=== PATIENT | female | born 2000 | race Caucasian/White ===

== ENCOUNTER 2022-08-11 09:21 | Inpatient (IN) ==
[2022-08-11] MEDS ORDERED: OXYTOCIN 30 UNITS/500 ML BAG IV PRN ×2 (09:32→09:37)
[2022-08-11] MEDS ORDERED: LACTATED RINGER'S 1,000 ML IV PRN (09:32)
[2022-08-11] MEDS ORDERED: LIDOCAINE 1% LOCAL 20 ML VIAL INFIL PRN (09:32)
[2022-08-11] MEDS ORDERED: bisacodyL 10 MG SUPP PR PRN (09:37)
[2022-08-11] MEDS ORDERED: oxyCODONE/ACETAMINOPHEN 5mg/325mg TAB PO PRN (09:37)
[2022-08-11] MEDS ORDERED: ACETAMINOPHEN 325 MG TAB PO PRN (09:37)
[2022-08-11] MEDS ORDERED: OXYTOCIN 10 UNITS/ML 10ML VIAL IM ONE (09:37)
[2022-08-11] MEDS ORDERED: HYDROCORTISONE ACETATE 25 MG SUPP PR PRN (09:37)
[2022-08-11] MEDS ORDERED: BENZOCAINE 20% AER SPR 82.5 GM CAN EXT PRN (09:37)
[2022-08-11] MEDS ORDERED: DIPHTHERIA/TETANUS/PERTUSSIS 0.5 ML SYR/VIAL IM ONE (09:37)
[2022-08-11 10:02] LABS: Hematocrit (blood only) 35.3 % (34.1-44.9); Hemoglobin 12.1 g/dl (12.0-16.0); Mean Corpuscular Hemoglobin 30.3 pg (25.0-34.0); Mean Corpuscular Hgb Conc 34.3 g/dL (32.0-36.0); Mean Corpuscular Volume 88.5 fL (80.0-100.0); Mean Platelet Volume 11.1 fL (9.4-12.3); Platelet Count 192 K/uL (130-400); RDW Coefficient of Variation 12.5 % (11.5-14.5); RDW Standard Deviation 40.5 fL (36.4-46.3); Red Blood Count 3.99 M/uL (3.93-5.22); White Blood Count 18.01 K/ul (4.8-10.8)
--- NOTE | 2022-08-11 10:14 | Delivery Summary ---
Vaginal Delivery Summary Date of Service August 11, 2022 Vaginal Delivery Summary [facility] Patient is a 22-year-old 3 para 1-0-1-1 female who presents at 39-2/7 weeks in active labor following spontaneous rupture of membranes at approximately 8 AM this morning. She arrived in labor and delivery at 9 AM fully dilated and with the urge to push. Dr. Benitez was on the labor & delivery unit at the time of the patient's arrival. I arrived shortly after the was delivered. According to Dr. Benitez, she pushed effectively through 1 or 2 contractions to deliver a viable male infant who was vigorous upon delivery. After the head was delivered there was a loose nuchal cord which was reduced prior to delivering the rest of the . The infant was placed on the mother's abdomen for further attention and drying. After approximately 1 minute the cord was clamped and cut. I delivered The placenta which was expressed intact with a three-vessel cord. Cord blood was obtained after the placenta was delivered. There were no perineal lacerations or abrasions present. bleeding was controlled with IM Pitocin and fundal massage. EBL 200cc. Mother and were doing well after delivery. [facility] Vaginal Delivery Charge Delivery Type Details: [facility]
[2022-08-11] MEDS ORDERED: METHYLERGONOVINE MALEATE 0.2 MG/ML AMP IM STA (11:11)
[2022-08-11] MEDS: IBUPROFEN 600 MG TAB PO PRN ×2 (15:52→20:53)
[2022-08-11] MEDS: DOCUSATE SODIUM 100 MG CAP PO SCH (20:53)
[2022-08-12] MEDS: IBUPROFEN 600 MG TAB PO PRN ×2 (04:04→11:02)
--- NOTE | 2022-08-12 07:34 | Obstetrical Progress Note ---
Date of Service August 12, 2022 Assessment & Plan (1) Encounter for care and examination after delivery: satisfactory exam wishes to be discharged follow up in 6 weeks Subjective Ambulation: ambulating normally Voiding: no voiding problems Passing Gas:: Yes Diet Tolerance:: regular diet Lochia:: Small Feeding Type:: breast feeding Review of Systems All systems reviewed & are unremarkable except as noted in HPI & below Physical Exam Constitutional WD/WN, vitals as above Psychiatric A+Ox3, euthymic affect Genitourinary OB Exam Abdomen: + fundal height Fundus: + firm and + relation to umbilicus (1 below) Results & Data ([facility]) Vital Signs (Past 12 Hours) Vital Signs Temp Pulse Resp BP Pulse Ox O2 Del Method 08/12/22 02:45 98.4 F 83 18 117/83 98 Room Air 08/11/22 23:30 98.6 F 97 H 18 135/90 97 Room Air 08/11/22 20:00 98.6 F 115 H 16 136/82 98 Room Air
[2022-08-12 07:46] LABS: Hemoglobin 10.1 g/dl (12.0-16.0); Mean Corpuscular Hgb Conc 33.7 g/dL (32.0-36.0); Mean Platelet Volume 11.1 fL (9.4-12.3); Platelet Count 190 K/uL (130-400); RDW Coefficient of Variation 12.8 % (11.5-14.5); RDW Standard Deviation 40.8 fL (36.4-46.3); Red Blood Count 3.37 M/uL (3.93-5.22); White Blood Count 13.41 K/ul (4.8-10.8)
[2022-08-12] MEDS ORDERED: PRENATAL VITAMIN 1 TAB PO SCH (08:00)
[2022-08-12] MEDS: DOCUSATE SODIUM 100 MG CAP PO SCH (09:01)
[2022-08-12] MEDS ORDERED: bisacodyL 5 MG TABEC PO SCH (20:00)
== END 2022-08-12 13:25 | disposition home or self-care (01) | DRG 807 ==
LOC: 4S1 09:21 → 4E2 13:08
DX: Z37.0 Single live birth; Z3A.39 39 weeks gestation of pregnancy; O69.81X0 Labor and delivery complicated by cord around neck, without compression, not applicable or unspecified; O42.02 Full-term premature rupture of membranes, onset of labor within 24 hours of rupture

== ENCOUNTER 2024-11-18 21:04 | Inpatient (IN) ==
[2024-11-18] MEDS ORDERED: OXYTOCIN 30 UNITS/NSS 30 UNITS/500 ML BAG IV PRN (22:20)
[2024-11-18] MEDS ORDERED: LIDOCAINE 1% LOCAL 20 ML VIAL INFIL PRN (22:20)
--- NOTE | 2024-11-18 22:25 | History & Physical Report ---
Date of Service November 18, 2024 Assessment & Plan (1) PROM (premature rupture of membranes): (2) Term : Plan admit, labs, iv recommended. will rec pitocin for induction given prom, however pt prefers to ambulate first to see if can develop ctx pattern. fhts categ 1. History of Present Illness Chief Complaint: term prom Primary Care Provider: Joyce Easton MD, FACOG 24yo at term with srom clear fluid at 8pm on 11/18/24. On arrival to gross srom per nurse and now with some ctx. Cx 3-4cm. PNC uncomplicated except rh neg PNL rh neg, ri, gbs neg OBH: x 2 GYNH: nl paps no stds Allergies Allergy/AdvReac Type Severity Reaction Status Date / Time No Known Allergies Allergy Verified 11/18/24 11:46 Home Medications Medication Instructions Recorded Confirmed Type prenat.vits,rachel,kno-[id number]-otilr 1 tab PO DAILY 08/11/22 11/18/24 History sertraline PO 04/15/24 11/18/24 History Patient History Medical History Encounter for care and examination after delivery Varicella vaccination Surgical History H/O unilateral salpingectomy S/P wisdom tooth extraction Family History Grandfather (Maternal) Colorectal cancer Mother Thyroid disease Brother Hypertension Sister Thyroid disease Denies family history of Ovarian cancer Breast cancer Social History Smoking Status: Never smoker Second Hand Exposure: No; Do You Dip or Chew Tobacco: No; Tobacco Cessation Education Requested by Patient: No Hx Alcohol Use: No Hx Substance Use: No Preferred Language: Divehi Communication Ability: Effective Relay Technician Required: No Beliefs That Will Affect Care: None marital status: marital status details: Jasen Mayer (27) [phone] Current Living Situation: Spouse and Family Current Living Situation Comment: and kids current occupational status: unemployed current occupation: homemaker Other Information That Helps Us Care for You: No Feels Safe at Home: Yes Safety Concerns: Feels Safe At This Time Assistive Devices: Glasses Review of Systems as per Subjective / HPI Physical Exam Constitutional: WD/WN, vitals as above Neurologic: grossly normal Genitourinary: Manual OB Exam: + cervical dilation (3-4cm cephalic per nurse) OB Exam Monitor Tracing: + external FHT monitor used, + external uterine monitor used (q2-3 currently pt up walking), + category I and + normal FHT variability Results & Data Vital Signs (Past 12 Hours) Vital Signs Pulse BP 11/18/24 21:39 89 128/78 Coding Level of Care Code None Diagnoses PROM (premature rupture of membranes) O42.90 Term Z34.90
[2024-11-18 23:25] LABS: Hemoglobin 10.4 g/dl (12.0-16.0); Mean Corpuscular Hemoglobin 29.4 pg (25.0-34.0); Mean Corpuscular Hgb Conc 33.5 g/dL (32.0-36.0); Mean Corpuscular Volume 87.6 fL (80.0-100.0); Mean Platelet Volume 10.8 fL (9.4-12.4); Platelet Count 193 K/uL (130-400); RDW Coefficient of Variation 12.5 % (11.5-14.5); Red Blood Count 3.54 M/uL (4.20-5.40); White Blood Count 11.27 K/ul (4.8-10.8)
[2024-11-19] MEDS: LACTATED RINGER'S 1,000 ML IV PRN (02:30)
[2024-11-19] MEDS: OXYTOCIN 30 UNITS/NSS 30 UNITS/500 ML BAG IV PRN (02:37)
[2024-11-19] MEDS: CALCIUM CARBONATE 500 MG CHEWABLE TAB PO PRN (03:22)
--- NOTE | 2024-11-19 06:41 | Delivery Summary ---
Vaginal Delivery Summary Date of Service November 19, 2024 Vaginal Delivery Summary The patient dilated to complete and pushed to deliver a viable female Apgars 8 and 8 via over intact perineum. Mother with urge to continue to push so shoulders and body rapidly delivered with ease. was vigorous and crying at . Mouth and nose bulb suctioned. Cord clamped at 52 seconds of life and to maternal abdomen where the cord was then doubly clamped and cut. Placenta delivered spontaneously and intact, three-vessel cord. Hemostasis achieved with dilute pitocin and uterine massage. Cervix and sulci intact. QBL 43 cc. Mother and baby stable in recovery. [facility] Vaginal Delivery Charge Delivery Type Details:
[2024-11-19] MEDS ORDERED: HYDROCORTISONE ACETATE 25 MG SUPP PR PRN (07:05)
[2024-11-19] MEDS ORDERED: oxyCODONE/ACETAMINOPHEN 5mg/325mg TAB PO PRN (07:05)
[2024-11-19] MEDS ORDERED: OXYTOCIN 30 UNITS/NSS 30 UNITS/500 ML BAG IV PRN (07:05)
[2024-11-19] MEDS: SERTRALINE HCL 100 MG TABLET PO SCH (09:02)
[2024-11-19] MEDS: BENZOCAINE 20% SPRY 85 APPLN/85 GM CAN EXT PRN (09:02)
[2024-11-19] MEDS: PRENATAL VITAMIN 1 TAB PO SCH (09:05)
[2024-11-19] MEDS: DOCUSATE SODIUM 100 MG CAP PO SCH (09:05)
[2024-11-19] MEDS: DIPHTHER/TETAN/PERTUS Vaccine (Tdap, Adol/Adult) 0.5mL IM ONE (09:06)
[2024-11-19] MEDS: IBUPROFEN 600 MG TAB PO PRN (09:50)
[2024-11-19] MEDS: ACETAMINOPHEN 325 MG TAB PO PRN (12:20)
[2024-11-20 02:12] VITALS: PULSE 81; RESP 18; O2SAT 99
--- NOTE | 2024-11-20 06:51 | Obstetrical Progress Note ---
Date of Service <Reji Godinez MD - Last Filed: 11/20/24 07:38> November 20, 2024 Assessment & Plan <Reji Godinez MD - Last Filed: 11/20/24 07:38> (1) care and examination: PPD#1 s/p at 39+ wga: Stable. Rh-, gbs neg, ri, AFVSS Continue routine care, ambulation, diet as tolerated Plan for DC today (2) Need for rhogam due to Rh negative mother: <Neftali Barnett MD - Last Filed: 11/23/24 09:34> (1) care and examination: (2) Need for rhogam due to Rh negative mother: Subjective <Reji Godinez MD - Last Filed: 11/20/24 07:38> Patient is a 24yo who is PPD#1 following at 39+ weeks. Mild abd pain/cramping, well managed on analgesics Voiding w/o issue Tolerating meals Ambulating normally +passing gas, +BM Lochia minimal, diminishing Planning to breastfeed. Constitutional: no fever, no chills or no sweats Respiratory: no dyspnea Cardiovascular: no chest pain, no palpitations or no calf pain Breast: no breast pain Gastrointestinal: no nausea or no vomiting Genitourinary (female): no dysuria Neurologic: no headache(s) no changes in vision, no headaches Physical Exam <Reji Godinez MD - Last Filed: 11/20/24 07:38> General: Alert, oriented. No acute distress. Cardiac: Regular rate and rhythm, no murmurs, rubs, or gallops. Respiratory: Clear to auscultation bilaterally. No increased work of breathing. Symmetrical chest rise. No respiratory distress. Abdomen: Soft, nontender, nondistended. Bowel sounds present. Uterus: Uterine fundus firm, nontender, palpable 1 cm below the umbilicus. Lower extremities: No lower extremity edema or swelling. No deep calf pain. Results & Data <Reji Godinez MD - Last Filed: 11/20/24 07:38> Vital Signs (Past 12 Hours) Vital Signs Temp Pulse Resp BP Pulse Ox O2 Del Method 11/20/24 02:10 36.4 C L 81 18 130/80 99 Room Air 11/19/24 22:56 36.5 C 88 16 108/61 98 Room Air 11/19/24 18:56 36.7 C 89 18 129/80 98 Room Air Supervising Physician <Neftali Barnett MD - Last Filed: 11/23/24 09:34> Co-Signing Physician Notes Patient seen with resident and agree with the above findings and plan. Stable for discharge as preferred by patient Resident Activity Tracking <Reji Godinez MD - Last Filed: 11/20/24 07:38> Resident Involvement: Resident Care Provided Care Provided: Adult Hospital Medicine
[2024-11-20 09:07] VITALS: BP 109/78; TEMP 97.7
[2024-11-20] MEDS ORDERED: bisacodyL 5 MG TABEC PO SCH (20:00)
== END 2024-11-20 10:07 | disposition home or self-care (01) | DRG 807 ==
LOC: OPB 21:04 → 4S1 21:06 → 4E1 11-19 09:54